=== PATIENT | female | born 1985 | race African-American/Black ===

== ENCOUNTER 2019-04-27 21:34 | Emergency (ER) | payer MEDICAID, SELFPAY ==
[2019-04-27] MEDS ORDERED: Lidocaine 1% (PF) 30 ML VIAL ONE (21:46)
[2019-04-27] MEDS ORDERED: Adacel (T-DAP) 0.5 ML SYRINGE ONE (21:46)
[2019-04-27] MEDS ORDERED: Bacitracin 1 PK ONE (22:17)
== END 2019-04-27 22:25 | disposition home or self-care (01) ==
LOC: ERS 21:34
DX: S61.411A Laceration without foreign body of right hand, initial encounter (principal); D64.9 Anemia, unspecified; G47.30 Sleep apnea, unspecified; E78.5 Hyperlipidemia, unspecified; E78.00 Pure hypercholesterolemia, unspecified; I10 Essential (primary) hypertension; Z23 Encounter for immunization; Z79.899 Other long term (current) drug therapy; W25.XXXA Contact with sharp glass, initial encounter; Y92.009 Unspecified place in unspecified non-institutional (private) residence as the place of occurrence of the external cause
CPT/HCPCS: 12002; 90471; 90715; J2001

== ENCOUNTER 2019-05-06 12:34 | Emergency (ER) | payer OTHER, SELFPAY | END 2019-05-06 12:55 | disposition home or self-care (01) | LOC: ERS 12:34 | DX: S61.011D Laceration without foreign body of right thumb without damage to nail, subsequent encounter (principal); D64.9 Anemia, unspecified; G47.30 Sleep apnea, unspecified; E78.5 Hyperlipidemia, unspecified; E78.00 Pure hypercholesterolemia, unspecified; I10 Essential (primary) hypertension; Z79.899 Other long term (current) drug therapy; W25.XXXD Contact with sharp glass, subsequent encounter ==

== ENCOUNTER 2020-01-23 12:48 | Emergency (ER) | payer OTHER ==
[2020-01-23 14:27] LABS: BHCG - Serum Negative (NEGATIVE); Pregs Control Background? CLEAR/WHITE (CLR/WHITE); Pregs Control Bar Appear? YES (CONTROL BAR)
--- NOTE | 2020-01-23 14:33 | RAD ---
EXAM: Shuntogram. HISTORY: LOCATION MANAGER shunt. Recent seizure approximately 30 minutes ago COMPARISON: 04/28/2010 FINDINGS: Images of the skull, neck, chest, and abdomen were performed. There are left frontal and ri ght posterior ventriculostomy catheters. These appear unchanged in position compared to the prior shuntogram. There are calcifications surrounding the shunt catheter is in the neck. There may be a fr acture of the left sided catheter in the neck near the cervicothoracic junction. The left-sided shunt has its tip in the pelvis and the right sided shunt has its tip in the right upper quadrant of the abdomen. IMPRESSION: Questionable fracture of the left LOCATION MANAGER shunt in the neck
[2020-01-23 14:34] LABS: ALT (SGPT) 12 U/L (8-55); AST (SGOT) 10 U/L (5-34); Alkaline Phosphatase 124 U/L (40-110); Anion Gap 13 mmol/L (10-20); BUN (Urea Nitrogen) 6 mg/dL (7.0-18.7); Bilirubin, Total 0.3 mg/dL (0.2-1.2); Calc. Creatinine Clearance 0 mL/min (70-130); Calcium 8.9 mg/dL (7.8-10.44); Carbon Dioxide 24 mmol/L (22-29); Chloride 103 mmol/L (98-107); Estimated GFR-MDRD Greater than 90; Globulin 3.7 g/dL (2.4-3.5); Glucose 95 mg/dL (70-105); Potassium 3.9 mmol/L (3.5-5.1); Protein, Total 7.7 g/dL (6.0-8.3); Sodium 136 mmol/L (136-145)
[2020-01-23] MEDS ORDERED: Ondansetron PF 4 MG/2 ML Vial ONE (14:34)
[2020-01-23 14:35] LABS: Acetaminophen Less than 6.0 mcg/mL (10.0-30.0); Alcohol Less than 10 mg/dL (Less than 10); Salicylate Less than 8.0 mg/dL (15.0-30.0)
[2020-01-23 14:40] LABS: #Eosinphils 0.1 thou/uL (0.0-0.7); #Lymphocytes 1.5 thou/uL (1.20-3.40); #Monocytes 1.2 thou/uL (0.11-0.59); #Neutrophils 12.3 thou/uL (1.40-6.50); %Basophils 0.1 % (0.0-1.0); %Eosinophils 0.6 % (0.0-10.0); %Lymphocytes 10.2 % (21.0-51.0); %Neutrophils 81.1 % (42.0-75.0); Hemoglobin 13.2 g/dL (12.0-16.0); Mean Corpuscular Hemoglobin 29.6 pg (27.0-31.0); Mean Corpuscular Volume 89.8 fL (78.0-98.0); Mean Platelet Volume 7.3 fL (7.4-10.4); Platelet Count 287 thou/uL (130-400); Red Blood Cell (RBC) Count 4.45 mill/uL (4.20-5.40); White Blood Cell (WBC) Count 15.2 thou/uL (4.8-10.8)
--- NOTE | 2020-01-23 15:03 | CT ---
EXAM: CT brain without contrast HISTORY: Seizure COMPARISON: 04/28/2010 TECHNIQUE: Multiple contiguous axial images were obtained and a CT of the brain without contrast. FINDINGS: Right parietal approach and left frontal approach ventriculostomy catheters are seen. The c atheter tips are unchanged in position. There is no evidence of hydrocephalus, intracranial hemorrhage, or extra-axial fluid collection. The visualized paranasal sinuses and mastoid air cells are well aerated. IMPRESSION: No evidence of acute intracranial abnormality
--- NOTE | 2020-01-23 16:44 | RAD ---
PORTABLE CHEST: Date: 01/23/2020 PROVIDED CLINICAL HISTORY: Chest pain. FINDINGS: Evaluation is limited by patient body habitus. The cardiac silhouette appears enlarged. Catheter-type material overlies the base of the neck and overlies the central chest. No focal consolidation, pleur al fluid, or pneumothorax apparent. IMPRESSION: No definite evidence for an acute cardiopulmonary process. POS: MARGOT
--- NOTE | 2020-01-23 16:53 | ULT ---
RIGHT UPPER QUADRANT ULTRASOUND: Date: 01/23/2020 PROVIDED CLINICAL HISTORY: Abdominal pain. FINDINGS: The visualized IVC and pancreas appear normal. The liver demonstrates no evidence for mass or intrahe patic biliary ductal dilatation. The common duct is not dilated. The gallbladder demonstrates no ston es, wall thickening, or pericholecystic fluid. The right kidney demonstrates no hydronephrosis or mas s. IMPRESSION: Unremarkable right upper quadrant ultrasound. POS: MARGOT
[2020-01-23 17:39] LABS: Bilirubin Negative (Negative); Blood, Urine Negative (Negative); Glucose, Urine (Dipstick) Negative (Negative); Ketone, Urine Negative (Negative); Leukocyte Negative (Negative); Nitrite Negative (Negative); Protein, Urine (Dipstick) Negative (Neg-Trace); Specific Gravity, Urine 1.015 (1.005-1.030); Urobilinogen 0.2 mg/dL (Less than 2); pH, Urine 7.5 (5.0-9.0)
[2020-01-23 17:41] LABS: Clarity Clear (Clear)
[2020-01-23 17:54] LABS: Amphetamine Not Detected (NotDetected); Barbiturates Screen Detected (NotDetected); Benzodiazepine Screen Not Detected (NotDetected); Cocaine Metabolite Screen Not Detected (NotDetected); Medtox Control Line Valid? VALID (VALID); Medtox Reader # READER 1; Methadone Not Detected (NotDetected); Methamphetamine Not Detected (NotDetected); Opiate Screen Not Detected (NotDetected); Oxycodone Screen Not Detected (NotDetected); Phencyclidine (PCP) Not Detected (NotDetected); THC/Cannabinoid Screen Not Detected (NotDetected); Tricyclic Screen Not Detected (NotDetected)
[2020-01-24 01:57] LABS: SARS-CoV-2 MS2 Positive; SARS-CoV-2 N Gene Negative; SARS-CoV-2 S Gene Negative; SARS-CoV-2 by NAA Not Detected (NotDetected); SARS-CoV-2 orf1ab Negative
== END 2020-01-23 17:54 | disposition home or self-care (01) ==
LOC: ERS 12:48
DX: R11.2 Nausea with vomiting, unspecified (principal); R10.13 Epigastric pain; E78.5 Hyperlipidemia, unspecified; E78.00 Pure hypercholesterolemia, unspecified; I10 Essential (primary) hypertension; Z79.899 Other long term (current) drug therapy
CPT/HCPCS: 36415; 51701; 70450; 71045; 75809; 76705; 80053; 80306; 80307; 81003; 83605; 83690; 84484; 84703; 85025; 87635; 93005; 96374; J2405; U0003

== ENCOUNTER 2020-01-24 09:18 | Emergency (ER) | payer OTHER ==
--- NOTE | 2020-01-24 10:50 | CT ---
CT BRAIN WITHOUT CONTRAST: HISTORY: Headache and vomiting. Seizures. COMPARISON: Previous day. FINDINGS: Bilateral ventriculostomy catheters are again seen from a right parietal approach and left frontal ap proach with unchanged positions of the capitatum. No evidence of acute infarct, hemorrhage, midline shift, abnormal extraaxial fluid collections, or hy drocephalus are seen. No acute osseous abnormalities are identified. The visualized paranasal sinus es are well aerated. IMPRESSION: No CT evidence of acute intracranial process. POS: DONNAA
[2020-01-24] MEDS ORDERED: traMADol HCl 50 MG TAB ONE (11:13)
[2020-01-24] MEDS ORDERED: Ketorolac Tromethamine 30 MG/ML VIAL ONE (11:14)
[2020-01-24] MEDS ORDERED: Metoclopramide HCl 10 MG TAB ONE (11:14)
== END 2020-01-24 13:35 | disposition home or self-care (01) ==
LOC: ERS 09:18
DX: R51.9 Headache, unspecified (principal); E78.5 Hyperlipidemia, unspecified; E78.00 Pure hypercholesterolemia, unspecified; I10 Essential (primary) hypertension; D64.9 Anemia, unspecified; G47.30 Sleep apnea, unspecified; Z79.899 Other long term (current) drug therapy
CPT/HCPCS: 70450; 96372; J1885

== ENCOUNTER 2020-04-25 01:05 | Emergency (ER) | payer OTHER ==
[2020-04-25 01:48] LABS: #Eosinphils 0.4 thou/uL (0.0-0.7); #Lymphocytes 2.3 thou/uL (1.20-3.40); #Neutrophils 9.1 thou/uL (1.40-6.50); %Basophils 0.3 % (0.0-1.0); %Eosinophils 2.8 % (0.0-10.0); %Lymphocytes 18.2 % (21.0-51.0); %Monocytes 7.9 % (0.0-10.0); %Neutrophils 70.8 % (42.0-75.0); Hemoglobin 12.3 g/dL (12.0-16.0); Mean Corpuscular HGB CONC 32.6 g/dL (32.0-36.0); Mean Corpuscular Hemoglobin 28.9 pg (27.0-31.0); Mean Corpuscular Volume 88.5 fL (78.0-98.0); Mean Platelet Volume 7.5 fL (7.4-10.4); Platelet Count 316 thou/uL (130-400); RBC Distribution Width 12.1 % (11.5-14.5); Red Blood Cell (RBC) Count 4.26 mill/uL (4.20-5.40); White Blood Cell (WBC) Count 12.8 thou/uL (4.8-10.8)
[2020-04-25 01:52] LABS: BHCG - Serum Negative (NEGATIVE); Pregs Control Background? CLEAR/WHITE (CLR/WHITE); Pregs Control Bar Appear? YES (CONTROL BAR)
[2020-04-25 02:09] LABS: ALT (SGPT) 10 U/L (8-55); AST (SGOT) 10 U/L (5-34); Albumin 4.1 g/dL (3.5-5.0); Alkaline Phosphatase 116 U/L (40-110); Anion Gap 15 mmol/L (10-20); BUN (Urea Nitrogen) 12 mg/dL (7.0-18.7); Bilirubin, Total 0.2 mg/dL (0.2-1.2); Calc. Creatinine Clearance 0 mL/min (70-130); Calcium 8.9 mg/dL (7.8-10.44); Carbon Dioxide 23 mmol/L (22-29); Chloride 102 mmol/L (98-107); Globulin 3.5 g/dL (2.4-3.5); Glucose 98 mg/dL (70-105); Potassium 3.6 mmol/L (3.5-5.1); Protein, Total 7.6 g/dL (6.0-8.3); Sodium 136 mmol/L (136-145)
[2020-04-25] MEDS ORDERED: Ketorolac Tromethamine 30 MG/ML VIAL ONE (02:46)
--- NOTE | 2020-04-25 08:50 | RAD ---
EXAM: Two views chest PROVIDED CLINICAL HISTORY: Dyspnea COMPARISON: 01/23/2020 FINDINGS: Cardiac and mediastinal silhouette is unchanged in appearance. Lungs appear free of significant opaci ty. No pleural fluid or pneumothorax apparent. IMPRESSION: No evidence for an acute cardiopulmonary process.
== END 2020-04-25 03:08 | disposition home or self-care (01) ==
LOC: ERS 01:05
DX: J18.9 Pneumonia, unspecified organism (principal); I10 Essential (primary) hypertension; D64.9 Anemia, unspecified; G47.30 Sleep apnea, unspecified; E78.5 Hyperlipidemia, unspecified; E78.00 Pure hypercholesterolemia, unspecified; Z79.899 Other long term (current) drug therapy
CPT/HCPCS: 36415; 71046; 80053; 84484; 84703; 85025; 96372; J1885

== ENCOUNTER 2020-08-03 11:32 | Emergency (ER) | payer OTHER ==
[2020-08-03] MEDS ORDERED: Fluorescein Opthalmic Strip ONE (14:31)
[2020-08-03] MEDS ORDERED: Proparacaine 0.5% Opth 15 ML BOT ONE (14:31)
== END 2020-08-03 15:23 | disposition home or self-care (01) ==
LOC: ERS 11:32
DX: L03.213 Periorbital cellulitis (principal); Z79.899 Other long term (current) drug therapy; G47.30 Sleep apnea, unspecified; E78.5 Hyperlipidemia, unspecified; E78.00 Pure hypercholesterolemia, unspecified; I10 Essential (primary) hypertension
CPT/HCPCS: 99283

== ENCOUNTER 2021-02-18 20:28 | Emergency (ER) | payer OTHER ==
[2021-02-19 06:15] LABS: SARS-CoV-2 NAA Rapid Test DETECTED (NotDetected)
== END 2021-02-18 23:20 | disposition home or self-care (01) ==
LOC: ERS 20:28
DX: U07.1 COVID-19 (principal); D64.9 Anemia, unspecified; G47.30 Sleep apnea, unspecified; I10 Essential (primary) hypertension; E78.5 Hyperlipidemia, unspecified; E78.00 Pure hypercholesterolemia, unspecified; Z79.899 Other long term (current) drug therapy
CPT/HCPCS: 99284; U0002

== ENCOUNTER 2021-04-29 09:39 | Emergency (ER) | payer OTHER ==
[2021-04-29 11:40] LABS: #Eosinphils 0.1 thou/uL (0.0-0.7); #Monocytes 0.8 thou/uL (0.11-0.59); #Neutrophils 10.7 thou/uL (1.40-6.50); %Basophils 0.3 % (0.0-1.0); %Eosinophils 0.5 % (0.0-10.0); %Lymphocytes 7.9 % (21.0-51.0); %Monocytes 6.6 % (0.0-10.0); %Neutrophils 84.7 % (42.0-75.0); Hemoglobin 12.8 g/dL (12.0-16.0); Mean Corpuscular HGB CONC 32.3 g/dL (32.0-36.0); Mean Corpuscular Hemoglobin 29.5 pg (27.0-31.0); Mean Corpuscular Volume 91.3 fL (78.0-98.0); Mean Platelet Volume 7.6 fL (7.4-10.4); Platelet Count 313 thou/uL (130-400); Red Blood Cell (RBC) Count 4.35 mill/uL (4.20-5.40); White Blood Cell (WBC) Count 12.6 thou/uL (4.8-10.8)
[2021-04-29 11:41] LABS: ALT (SGPT) 9 U/L (8-55); AST (SGOT) 11 U/L (5-34); Albumin 4.3 g/dL (3.5-5.0); Alkaline Phosphatase 109 U/L (40-110); Anion Gap 14 mmol/L (10-20); BUN (Urea Nitrogen) 8 mg/dL (7.0-18.7); Bilirubin, Total 0.5 mg/dL (0.2-1.2); Calc. Creatinine Clearance 0 mL/min (70-130); Calcium 9.4 mg/dL (7.8-10.44); Carbon Dioxide 23 mmol/L (22-29); Chloride 103 mmol/L (98-107); Globulin 3.3 g/dL (2.4-3.5); Glucose 95 mg/dL (70-105); Potassium 3.8 mmol/L (3.5-5.1); Protein, Total 7.6 g/dL (6.0-8.3); Sodium 136 mmol/L (136-145)
[2021-04-29 12:36] LABS: BHCG - Serum Negative (NEGATIVE); Pregs Control Background? CLEAR/WHITE (CLR/WHITE); Pregs Control Bar Appear? YES (CONTROL BAR)
[2021-04-29] MEDS ORDERED: Aspirin Chewable 81 MG TAB ONE (12:53)
== END 2021-04-29 13:09 | disposition home or self-care (01) ==
LOC: ERS 09:39
DX: R07.89 Other chest pain (principal); E78.5 Hyperlipidemia, unspecified; I10 Essential (primary) hypertension; Z79.899 Other long term (current) drug therapy
CPT/HCPCS: 36415; 71045; 75809; 80053; 84484; 84703; 85025; 93005